=== PATIENT | female | born 1960 | race Caucasian/White ===

== ENCOUNTER 2019-03-26 09:36 | Emergency (ER) | payer MEDICARE, MEDICAID ==
[2019-03-26 09:53] VITALS: BP 128/71
[2019-03-26 10:02] LABS: BILIRUBIN,URINE NEGATIVE (NEGATIVE); GLUCOSE, URINE (UA) NEGATIVE (NEGATIVE); KETONES,URINE (UA) NEGATIVE (NEGATIVE); LEUKOCYTE ESTERASE, URINE MODERATE (NEGATIVE); NITRITE,URINE NEGATIVE (NEGATIVE); OCCULT BLOOD,URINE TRACE-INTA (NEGATIVE); PROTEIN,URINE NEGATIVE (NEGATIVE); UROBILINOGEN,URINE 0.2 (NORMAL) E.U./dL (NORMAL)
[2019-03-26 10:06] LABS: CLARITY,URINE HAZY (CLEAR)
[2019-03-26 10:14] LABS: BACTERIA,URINE Few /HPF (None Seen); RBC,URINE 0-5 /HPF (0-5); SQUAMOUS EPITHELIAL CELL,UR FEW Squamous (<= Few); WBC CLUMPS,URINE PRESENT
--- NOTE | 2019-03-26 10:42 | ED Physician Documentation ---
History of Present Illness - Stated complaint Stated Complaint: FEMALE - Chief complaint Chief Complaint: UTI - Additonal information Additional information: This is a 58-year-old female who presents with 5 days of dysuria. She states th at she has had burning when she urinates for the last 5 days despite drinking cranberry juice. She has no abdominal pain, no flank pain, no fever. She has had UTIs in the past, this feels similar. She denies other complaints. Review of Systems Constitutional: denies: Fever : reports: Dysuria PD PAST MEDICAL HISTORY - Past Medical History Past Medical History: No - Past Surgical History Past Surgical History: No - Present Medications Home Medications: Ambulatory Orders Medication Instructions Recorded Confirmed Nitrofurantoin Monohyd/M-Cryst 100 mg PO BID #10 capsule 03/26/19 [Macrobid 100 mg Capsule] - Allergies Allergies/Adverse Reactions: Allergies Allergy/AdvReac Type Severity Reaction Status Date / Time codeine Allergy Rash Verified 03/26/19 09:45 shellfish derived Allergy Hallucinati Verified 03/26/19 09:46 ons Sulfa (Sulfonamide Allergy Hallucinati Verified 03/26/19 09:45 Antibiotics) ons - Social History Does the pt smoke?: No Smoking Status: Never smoker Does the pt drink ETOH?: No Does the pt have substance abuse?: No - Immunizations Immunizations are current?: Yes - POLST Patient has POLST: No PD ED PE NORMAL - Vitals Vital signs reviewed: Yes - General General: Alert and oriented X 3, No acute distress - HEENT HEENT: PERRL - Neck Neck: Supple, no meningeal sign - Cardiac Cardiac: RRR, No murmur - Respiratory Respiratory: Clear bilaterally - Abdomen Abdomen: Soft, Non tender - Derm Derm: Warm and dry - Extremities Extremities: No deformity - Neuro Neuro: Alert and oriented X 3 - Psych Psych: Normal mood, Normal affect Results - Vitals Vitals: Vital Signs - 24 hr 03/26/19 09:43 Temperature 35.7 C L Heart Rate 96 Respiratory 16 Rate Blood Pressure 128/71 O2 Saturation 97 Oxygen O2 Source Room air - Labs Labs: Laboratory Tests 03/26/19 09:58 Urine Color YELLOW Urine Clarity HAZY Urine pH 6.0 Ur Specific [place] 1.015 Urine Protein NEGATIVE Urine Glucose (UA) NEGATIVE Urine Ketones NEGATIVE Urine Occult Blood TRACE-INTA Urine Nitrite NEGATIVE Urine Bilirubin NEGATIVE Urine Urobilinogen 0.2 (NORMAL) Ur Leukocyte Esterase MODERATE H Urine RBC 0-5 Urine WBC >25 H Urine WBC Clumps PRESENT Ur Squamous Epith Cells FEW Squamous Urine Bacteria Few Ur Microscopic Review INDICATED Urine Culture Comments INDICATED PD MEDICAL DECISION MAKING - ED course ED course: Patient presents with symptoms consistent with a urinary tract infection, and her urine does indeed show a UTI. She has no abdominal pain, flank pain, fever, or signs of pyelonephritis or other work-up breast infection at this time. Her vital signs are unremarkable. I discussed the plan of treatment with antibiotics, return precautions, and follow with her primary care provider on he r recurrent UTIs. She has no history of kidney problems, she is otherwise healthy, and Macrobid appears to be good choice of antibiotic for her. Patient agrees with plan and was discharged home with a prescription for antibiotics Departure - Departure Disposition: 01 Home, Self Care Clinical Impression: Urinary tract infection Qualifiers: Urinary tract infection type: acute cystitis Hematuria presence: without hematuria Qualified Code(s): N30.00 - Acute cystitis without hematuria Instructions: ED UTI Cystitis Female Prescriptions: Nitrofurantoin Monohyd/M-Cryst [Macrobid 100 mg Capsule] 100 mg PO BID #10 capsule Comments: You have a urinary tract infection today. Please take the antibiotic as prescribed. Please help with your primary care provider on your recurrent urinary tract infections. If you are developing worsening symptom such as fever, back pain, or other concerning symptoms return to the emergency department Discharge Date/Time: 03/26/19 11:04
== END 2019-03-26 11:04 | disposition home or self-care (01) ==
LOC: ED 09:36
DX: N30.00 Acute cystitis without hematuria (principal)
CPT/HCPCS: 81001; 81003; 87077; 87086; 87181; 99283; 99284